=== PATIENT | male | born 1955 | race Hispanic/Latino ===

== ENCOUNTER 2018-02-22 22:40 | Observation (INO) | payer MEDICAID, OTHER ==
[2018-02-22 23:36] LABS: BASO # 0.06 K/mm3 (0.0-2.0); BASO % 0.6 % (0.0-3.0); EOS # 0.5 (0.0-0.7); GRAN # 4.45 (1.4-6.5); GRAN % 44.6 % (50.0-68.0); HEMOGLOBIN 14.2 g/dL (14.0-18.0); LYMPH # 3.7 (1.2-3.4); LYMPH % 37.2 % (22.0-35.0); MEAN CORPUSCULAR HEMOGLOBIN 30.5 pg (25.0-35.0); MEAN CORPUSCULAR HGB CONC 33.6 g/dl (31.0-37.0); MEAN PLATELET VOLUME 10.1 fl (7.0-11.0); MONO # 1.3 (0.1-0.6); MONO % 12.6 % (1.0-6.0); RBC 4.65 10^6/uL (3.5-6.1); RED CELL DISTRIBUTION WIDTH 13.8 % (11.5-14.5)
[2018-02-22 23:42] LABS: ALB/GLOB RATIO 1.2 (1.1-1.8); ALBUMIN 4.3 g/dL (3.0-4.8); ALT/SGPT 40 U/L (7-56); AST/SGOT 43 U/L (17-59); BLOOD UREA NITROGEN 13 mg/dL (7-21); CALCIUM 9.4 mg/dL (8.4-10.5); GFR NON-AFRICAN AMERICAN > 60
[2018-02-22 23:53] LABS: B-TYPE NATRIURETIC PEPTIDE 14.2 pg/mL (0-450); TROPONIN I < 0.01 ng/mL
[2018-02-23 00:04] LABS: CK-MB 2.8 ng/mL (0.0-3.6)
[2018-02-23 00:04] LABS: PH,URINE 6.5 (4.7-8.0); URINE BILIRUBIN NEGATIVE (NEGATIVE); URINE BLOOD NEGATIVE (NEGATIVE); URINE GLUCOSE (UA) NEGATIVE (NEGATIVE); URINE LEUKOCYTE ESTERASE NEGATIVE Leu/uL (NEGATIVE); URINE PROTEIN NEGATIVE mg/dL (<30 mg/dL); URINE UROBILINOGEN 0.2 E.U./dL (<1 E.U./dL)
[2018-02-23 00:22] LABS: URINE APPEARANCE CLEAR (CLEAR); URINE COLOR LIGHT YELLOW (YELLOW)
--- NOTE | 2018-02-23 01:32 | ED PDOC ---
Arrival/HPI <Alissa Kovacs - Last Filed: 02/23/18 02:37> - General Historian: Patient - History of Present Illness Narrative History of Present Illness (Text): Amador Cummins is a 62 year old male, with no past medical history because patient stated he does not go to the doctor, who presents to the Emergency department complaining of sudden onset of dizziness and palpitations. Patient states he was sitting in his chair when he suddenly started to feel dizzy, s weating, and felt his heart racing. Patient states he stood up and felt like he was going to pass out. Patient states he symptoms slowly resolved but he came to the Emergency department for further evaluation. Patient states he has been sick for the past month with cough, which has improved. Patient denies any nasal congestion, headache, trauma/injury, abdominal pain, nausea, vomiting, blurry vision, or any other complaints. Symptom Onset: Gradual Symptom Course: Unchanged Activities at Onset: Light Context: Home <Saleem Hawkins DO - Last Filed: 02/23/18 03:06> - General Chief Complaint: Dizziness/Lightheaded Time Seen by Provider: 02/22/18 23:01 Past Medical History - Cardiac Hx Cardiac Disorders: No - Gastrointestinal Other/Comment: appendectomy. hernia - Genitourinary/Gynecological Hx Genitourinary Disorders: No - Psychiatric Hx Substance Use: No - Surgical History Other/Comment: inguinal hernia - Anesthesia Hx Anesthesia: No <Alissa Kovacs - Last Filed: 02/23/18 02:37> - Provider Review Nursing Documentation Reviewed: Yes <Saleem Hawkins DO - Last Filed: 02/23/18 03:06> Family/Social History Smoking Status: Never Smoked Hx Alcohol Use: No Hx Substance Use: No <Alissa Kovacs - Last Filed: 02/23/18 02:37> - Physician Review Nursing Documentation Reviewed: Yes Family/Social History: Unknown Family HX <Saleem Hawkins DO - Last Filed: 02/23/18 03:06> Allergies/Home Meds <Alissa Kovacs - Last Filed: 02/23/18 02:37> <Saleem Hawkins DO - Last Filed: 02/23/18 03:06> Allergies/Adverse Reactions: Allergies Penicillins Adverse Reaction (Verified 02/22/18 22:56) URTICARIA Home Medications: Home Meds Medication Instructions Recorded Confirmed No Known Home Med 02/22/18 02/22/18 Review of Systems - Physician Review All systems were reviewed & negative as marked: Yes - Review of Systems Cardiovascular: Palpitations, Other (+near-syncope) Gastrointestinal: absent: Nausea, Vomiting Neurological: Dizziness Endocrine: Diaphoresis <Shruthi Saleem GRANT - Last Filed: 02/23/18 03:06> Physical Exam Vital Signs Temp Pulse Resp BP Pulse Ox 02/22/18 22:53 98.0 F 104 H 18 143/80 98 <Alissa Kovacs - Last Filed: 02/23/18 02:37> Vital Signs Reviewed: Yes Vital Signs Temp Pulse Resp BP Pulse Ox 02/23/18 01:34 76 18 137/81 98 02/22/18 22:53 98.0 F 104 H 18 143/80 98 Temperature: Afebrile Blood Pressure: Normal Pulse: Regular Respiratory Rate: Normal Appearance: Positive for: Well-Appearing, Non-Toxic, Comfortable Pain Distress: None Mental Status: Positive for: Alert and Oriented X 3 - Systems Exam Head: Present: Atraumatic, Normocephalic Pupils: Present: PERRL Extroacular Muscles: Present: EOMI Conjunctiva: Present: Normal Ears: Present: Normal, NORMAL TM, Normal Canal. No: Erythema, TM Bulging, Fluid, TM Perf Mouth: Present: Moist Mucous Membranes Pharnyx: Present: Normal. No: ERYTHEMA, EXUDATE, TONSILS ENLARGED, Peritonsilar Swelling, Uvular Deviation, Muffled/Hoarse Voice, Strider, Soft Palate/Uvular Edema Nose (External): Present: Atraumatic Nose (Internal): Present: Normal Inspection Neck: Present: Normal Range of Motion. No: Meningeal Signs, MIDLINE TENDERNESS, Paraspinal Tenderness Respiratory/Chest: Present: Clear to Auscultation, Good Air Exchange. No: Respiratory Distress, Accessory Muscle Use Cardiovascular: Present: Regular Rate and Rhythm, Normal S1, S2. No: Murmurs Abdomen: No: Tenderness, Distention, Peritoneal Signs Back: Present: Normal Inspection. No: CVA Tenderness, Midline Tenderness, Paraspinal Tenderness Upper Extremity: Present: Normal Inspection, Normal ROM, NORMAL PULSES. No: Cyanosis, Edema Lower Extremity: Present: Normal Inspection, NORMAL PULSES, Normal ROM. No: Edema Neurological: Present: GCS=15, Speech Normal, Motor Func Grossly Intact, Normal Sensory Function, Normal Cerebellar Funct, Other (Moving all extremities) Skin: Present: Warm, Dry, Normal Color. No: Rashes Psychiatric: Present: Alert, Oriented x 3, Normal Insight, Normal Concentration <Saleem Hawkins DO - Last Filed: 02/23/18 03:06> Medical Decision Making - Lab Interpretations Lab Results: 02/22/18 23:03 02/22/18 23:03 Lab Results 02/22/18 23:40: Urine Color Light yellow, Urine Appearance Clear, Urine pH 6.5, Ur Specific [place] <= 1.005, Urine Protein Negative, Urine Glucose (UA) Negative, Urine Ketones Negative, Urine Blood Negative, Urine Nitrate Negative, Urine Bilirubin Negative, Urine Urobilinogen 0.2, Ur Leukocyte Esterase Negative 02/22/18 23:03: WBC 10.0, RBC 4.65, Hgb 14.2, Hct 42.3, MCV 91.0, MCH 30.5, MCHC 33.6, RDW 13.8, Plt Count 297, MPV 10.1, Gran % 44.6 L, Lymph % (Auto) 37.2 H, Beadle % (Auto) 12.6 H, Eos % (Auto) 5.0, Baso % (Auto) 0.6, Gran # 4.45, Lymph # (Auto) 3.7 H, [place]le # (Auto) 1.3 H, Eos # (Auto) 0.5, Baso # (Auto) 0.06 02/22/18 23:03: Sodium 137, Potassium 3.7, Chloride 101, Carbon Dioxide 28, Anion Gap 12, BUN 13, Creatinine 1.0, Est GFR ( Amer) > 60, Est GFR (Non- Af Amer) > 60, Random Glucose 175 H, Calcium 9.4, Total Bilirubin 0.4, AST 43, ALT 40, Alkaline Phosphatase 73, Lactate Dehydrogenase 520, Total Creatine Kinase 307 H, CK-MB (CK-2) 2.8, CK-MB (CK-2) % Cancelled, Troponin I < 0.01, NT-Pro-B Natriuret Pep 14.2, Total Protein 7.8, Albumin 4.3, Globulin 3.5, Albumin/Globulin Ratio 1.2 - RAD Interpretation Radiology Orders: 02/22/18 23:11 CHEST PORTABLE [RAD] Stat 02/22/18 23:39 HEAD W/O CONTRAST [CT] Stat <Alissa Kovacs - Last Filed: 02/23/18 02:37> ED Course and Treatment: Impression: 62 year old male complaining of dizziness, near-syncope, and palpitations. Plan: -- CT Head w/o contrast -- EKG -- Chest X-ray -- CMC, CMP, BNP -- Urinalysis -- Aspirin -- Reassess and disposition Progress Notes: Radiology reviewed, Chest X-ray shows no acute processes. CT Head shows: No acute intracranial abnormality. Electronically signed on Feb 23, 2018 12:55:15 AM EST by: Saleem Egan M.D., YOLY Certified By ABR & CBCCT Fellowship Trained MRI and CT Specialist Case discussed with Dr. Wallis. Will admit pt to hospitalist service for near- syncope and hyperglycemia, observational status. - Lab Interpretations Lab Results: 02/22/18 23:03 02/22/18 23:03 Lab Results 02/22/18 23:40: Urine Color Light yellow, Urine Appearance Clear, Urine pH 6.5, Ur Specific [place] <= 1.005, Urine Protein Negative, Urine Glucose (UA) Negative, Urine Ketones Negative, Urine Blood Negative, Urine Nitrate Negative, Urine Bilirubin Negative, Urine Urobilinogen 0.2, Ur Leukocyte Esterase Negative 02/22/18 23:03: WBC 10.0, RBC 4.65, Hgb 14.2, Hct 42.3, MCV 91.0, MCH 30.5, MCHC 33.6, RDW 13.8, Plt Count 297, MPV 10.1, Gran % 44.6 L, Lymph % (Auto) 37.2 H, Beadle % (Auto) 12.6 H, Eos % (Auto) 5.0, Baso % (Auto) 0.6, Gran # 4.45, Lymph # (Auto) 3.7 H, [place]le # (Auto) 1.3 H, Eos # (Auto) 0.5, Baso # (Auto) 0.06 02/22/18 23:03: Sodium 137, Potassium 3.7, Chloride 101, Carbon Dioxide 28, Anion Gap 12, BUN 13, Creatinine 1.0, Est GFR ( Amer) > 60, Est GFR (Non- Af Amer) > 60, Random Glucose 175 H, Calcium 9.4, Total Bilirubin 0.4, AST 43, A LT 40, Alkaline Phosphatase 73, Lactate Dehydrogenase 520, Total Creatine Kinase 307 H, CK-MB (CK-2) 2.8, CK-MB (CK-2) % Cancelled, Troponin I < 0.01, NT-Pro-B Natriuret Pep 14.2, Total Protein 7.8, Albumin 4.3, Globulin 3.5, Albumin/Globulin Ratio 1.2 I have reviewed the lab results: Yes - RAD Interpretation Radiology Orders: 02/22/18 23:11 CHEST PORTABLE [RAD] Stat 02/22/18 23:39 HEAD W/O CONTRAST [CT] Stat Marble Supervisor: ED Physician, Radiologist - EKG Interpretation Interpreted by ED Physician: Yes Type: 12 lead EKG - Medication Orders Current Medication Orders: Sodium Chloride (Sodium Chloride 0.9%) 1,000 mls @ 100 mls/hr IV .Q10H GIOVANNA Last Admin: 02/23/18 02:28 Dose: 100 mls/hr eMAR Start Stop Document 02/23/18 02:28 CNR (Rec: 02/23/18 02:29 CNR [id number]) Intravenous Solution Start Date 02/23/18 Start Time 02:29 Insulin Human Lispro (Humalog Low) 0 units SC ACHS GIOVANNA; Protocol Discontinued Medications Aspirin (Aspirin) 325 mg PO STAT STA Stop: 02/23/18 02:01 Last Admin: 02/23/18 02:29 Dose: 325 mg <Saleem Hawkins DO - Last Filed: 02/23/18 03:06> - Scribe Statement The provider has reviewed the documentation as recorded by the Christiano Epps Provider Scribe Attestation: All medical record entries made by the Scribe were at my direction and personally dictated by me. I have reviewed the chart and agree that the record a ccurately reflects my personal performance of the history, physical exam, medical decision making, and the department course for this patient. I have also personally directed, reviewed, and agree with the discharge instructions and disposition. <Saleem Hawkins DO - Last Filed: 02/23/18 03:06> Disposition/Present on Arrival - Present on Arrival Any Indicators Present on Arrival: No History of DVT/PE: No History of Uncontrolled Diabetes: No Urinary Catheter: No History of Decub. Ulcer: No History Surgical Site Infection Following: None - Disposition Have Diagnosis and Disposition been Completed?: Yes Disposition Time: 01:20 Patient Plan: Observation <Alissa Kovacs - Last Filed: 02/23/18 02:37> <Saleem Hawkins DO - Last Filed: 02/23/18 03:06> - Disposition Diagnosis: Near syncope, Palpitations, Elevated blood sugar level Disposition: HOSPITALIZED Patient Problems: Current Active Problems Problem Status Onset Near syncope Acute Palpitations Acute Elevated blood sugar level Acute Condition: FAIR
[2018-02-23] MEDS: Sodium Chloride 0.9% 1,000 ML IV SCH ×3 (02:28→22:49)
--- NOTE | 2018-02-23 03:13 | ED PDOC ---
Arrival/HPI - General Historian: Patient - History of Present Illness Narrative History of Present Illness (Text): Amador Cummins is a 62 year old male, with no past medical history because patient stated he does not go to the doctor, who presents to the Emergency department complaining of sudden onset of dizziness and palpitations. Patient states he was sitting in his chair when he suddenly started to feel dizzy, sweating, and felt his heart racing. Patient states he stood up and felt like he was going to pass out. Patient states he symptoms slowly improved but he came to the Emergency department for further evaluation. Patient states he has been sick for the past month with cough, which has improved. Patient denies any nasal congestion, headache, trauma/injury, abdominal pain, nausea, vomiting, blurry vision, or any other complaints. Symptom Onset: Gradual Symptom Course: Unchanged Activities at Onset: Light Context: Home <Alissa Kovacs - Last Filed: 02/23/18 03:14> <Saleem Hawkins DO - Last Filed: 02/23/18 03:28> - General Chief Complaint: Dizziness/Lightheaded Time Seen by Provider: 02/22/18 23:01 Past Medical History - Provider Review Nursing Documentation Reviewed: Yes - Travel History Have you recently traveled outside [place] w/in the past 3 mons?: No - Infectious Disease Hx of Infectious Diseases: None - Cardiac Hx Cardiac Disorders: No - Gastrointestinal Other/Comment: appendectomy. hernia - Genitourinary/Gynecological Hx Genitourinary Disorders: No - Psychiatric Hx Substance Use: No - Surgical History Other/Comment: inguinal hernia - Anesthesia Hx Anesthesia: No <Alissa Kovacs - Last Filed: 02/23/18 03:14> Family/Social History - Physician Review Nursing Documentation Reviewed: Yes Family/Social History: Unknown Family HX Smoking Status: Never Smoked Hx Alcohol Use: No Hx Substance Use: No <Alissa Kovacs - Last Filed: 02/23/18 03:14> Allergies/Home Meds <Alissa Kovacs - Last Filed: 02/23/18 03:14> <Saleem Hawkins DO - Last Filed: 02/23/18 03:28> Allergies/Adverse Reactions: Allergies Penicillins Adverse Reaction (Verified 02/22/18 22:56) URTICARIA Home Medications: Home Meds Medication Instructions Recorded Confirmed No Known Home Med 02/22/18 02/22/18 Review of Systems - Review of Systems Constitutional: absent: Fatigue, Fevers ENT: absent: Sore Throat, Sinus Congestion Respiratory: Cough. absent: SOB Cardiovascular: Palpitations. absent: Chest Pain, Orthopnea Gastrointestinal: absent: Abdominal Pain, Constipation, Diarrhea, Nausea, Vomiting Genitourinary Male: absent: Dysuria, Frequency, Hematuria Musculoskeletal: absent: Arthralgias, Back Pain, Neck Pain Skin: absent: Rash, Pruritis Neurological: Dizziness, Other (near syncope). absent: Headache Endocrine: Diaphoresis Psychiatric: absent: Anxiety, Depression <Azoia,Alissa T - Last Filed: 02/23/18 03:14> Physical Exam Vital Signs Reviewed: Yes Vital Signs Temp Pulse Resp BP Pulse Ox 02/23/18 01:34 76 18 137/81 98 02/22/18 22:53 98.0 F 104 H 18 143/80 98 Temperature: Afebrile Blood Pressure: Normal Pulse: Tachycardic Respiratory Rate: Normal Appearance: Positive for: Well-Appearing, Non-Toxic, Comfortable Pain Distress: None Mental Status: Positive for: Alert and Oriented X 3 - Systems Exam Head: Present: Atraumatic Pupils: Present: PERRL Extroacular Muscles: Present: EOMI Conjunctiva: Present: Normal Ears: Present: Normal, NORMAL TM Mouth: Present: Moist Mucous Membranes, Normal Lips, Normal Tounge. No: Drooling, Trismus Pharnyx: Present: Normal. No: ERYTHEMA, EXUDATE, TONSILS ENLARGED, Peritonsilar Swelling, Muffled/Hoarse Voice Nose (External): Present: Atraumatic Nose (Internal): Present: Normal Inspection. No: Septal Deviation, Septal Hematoma Neck: Present: Normal Range of Motion, Trachea Midline Respiratory/Chest: Present: Clear to Auscultation, Good Air Exchange. No: Respiratory Distress, Accessory Muscle Use, Wheezes, Retracting, Rhonchi, Tachypneic Cardiovascular: Present: Regular Rate and Rhythm. No: Murmurs Abdomen: No: Tenderness, Rebound, Guarding Upper Extremity: Present: Normal Inspection, Normal ROM Lower Extremity: Present: Normal Inspection, Normal ROM Neurological: Present: GCS=15, Speech Normal Skin: Present: Warm, Dry, Normal Color. No: Rashes Psychiatric: Present: Alert, Oriented x 3 <Alissa Kovacs - Last Filed: 02/23/18 03:14> Vital Signs Temp Pulse Resp BP Pulse Ox 02/23/18 01:34 76 18 137/81 98 02/22/18 22:53 98.0 F 104 H 18 143/80 98 <Saleem Hawkins DO - Last Filed: 02/23/18 03:28> Medical Decision Making ED Course and Treatment: 62 year old male complaining of dizziness, near-syncope, and palpitations. Plan: -- CT Head w/o contrast -- EKG -- Chest X-ray -- CMC, CMP, BNP -- Urinalysis -- Reassess and disposition Progress Notes: FINDINGS: BRAIN No acute intraparenchymal hemorrhage. No mass lesion. No CT evidence for acute territorial infarct. No midline shift or extra-axial collections. VENTRICLES: No hydrocephalus. ORBITS: The orbits are unremarkable. SINUSES AND MASTOIDS: Bilateral maxillary sinusitis The mastoid air cells are clear. BONES: No fracture. SOFT TISSUES: Unremarkable. IMPRESSION: No acute intracranial abnormality. Electronically signed on Feb 23, 2018 12:55:15 AM EST by: Saleem Egan M.D., YOLY Certified By ABR & CBCCT Fellowship Trained MRI and CT Specialist cxr; no infiltrate or effusion cbc; wnl cmp; glucose; 175 ua; wnl results discussed with patient in depth; pt states he is feeling better. denies cp or sob. advised patient of elevated glucose. Case discussed with Dr. Wallis. Will admit observational status to hospitalist service for near-syncope and hyperglycemia impression; dizzinesss, near syncope, elevated blood glucose admit observational status. - Lab Interpretations Lab Results: 02/22/18 23:03 02/22/18 23:03 Lab Results 02/22/18 23:40: Urine Color Light yellow, Urine Appearance Clear, Urine pH 6.5, Ur Specific [place] <= 1.005, Urine Protein Negative, Urine Glucose (UA) Negative, Urine Ketones Negative, Urine Blood Negative, Urine Nitrate Negative, Urine Bilirubin Negative, Urine Urobilinogen 0.2, Ur Leukocyte Esterase Negative 02/22/18 23:03: WBC 10.0, RBC 4.65, Hgb 14.2, Hct 42.3, MCV 91.0, MCH 30.5, MCHC 33.6, RDW 13.8, Plt Count 297, MPV 10.1, Gran % 44.6 L, Lymph % (Auto) 37.2 H, [place] % (Auto) 12.6 H, Eos % (Auto) 5.0, Baso % (Auto) 0.6, Gran # 4.45, Lymph # (Auto) 3.7 H, Frontier # (Auto) 1.3 H, Eos # (Auto) 0.5, Baso # (Auto) 0.06 02/22/18 23:03: Sodium 137, Potassium 3.7, Chloride 101, Carbon Dioxide 28, Anion Gap 12, BUN 13, Creatinine 1.0, Est GFR ( Amer) > 60, Est GFR (Non- Af Amer) > 60, Random Glucose 175 H, Calcium 9.4, Total Bilirubin 0.4, AST 43, ALT 40, Alkaline Phosphatase 73, Lactate Dehydrogenase 520, Total Creatine Kinase 307 H, CK-MB (CK-2) 2.8, CK-MB (CK-2) % Cancelled, Troponin I < 0.01, NT- Pro-B Natriuret Pep 14.2, Total Protein 7.8, Albumin 4.3, Globulin 3.5, Albumin/Globulin Ratio 1.2 I have reviewed the lab results: Yes - RAD Interpretation Radiology Orders: 02/22/18 23:11 CHEST PORTABLE [RAD] Stat 02/22/18 23:39 HEAD W/O CONTRAST [CT] Stat Cloth Spreader: ED Physician, Radiologist - EKG Interpretation Interpreted by ED Physician: Yes Type: 12 lead EKG - Medication Orders Current Medication Orders: Sodium Chloride (Sodium Chloride 0.9%) 1,000 mls @ 100 mls/hr IV .Q10H GIOVANNA Last Admin: 02/23/18 02:28 Dose: 100 mls/hr eMAR Start Stop Document 02/23/18 02:28 CNR (Rec: 02/23/18 02:29 CNR [id number]) Intravenous Solution Start Date 02/23/18 Start Time 02:29 Insulin Human Lispro (Humalog Low) 0 units SC ACHS GIOVANNA; Protocol Discontinued Medications Aspirin (Aspirin) 325 mg PO STAT STA Stop: 02/23/18 02:01 Last Admin: 02/23/18 02:29 Dose: 325 mg <Alissa Kovacs T - Last Filed: 02/23/18 03:14> - Lab Interpretations Lab Results: 02/22/18 23:03 02/22/18 23:03 Lab Results 02/22/18 23:40: Urine Color Light yellow, Urine Appearance Clear, Urine pH 6.5, Ur Specific [place] <= 1.005, Urine Protein Negative, Urine Glucose (UA) Negative, Urine Ketones Negative, Urine Blood Negative, Urine Nitrate Negative, Urine Bilirubin Negative, Urine Urobilinogen 0.2, Ur Leukocyte Esterase Negative 02/22/18 23:03: WBC 10.0, RBC 4.65, Hgb 14.2, Hct 42.3, MCV 91.0, MCH 30.5, MCHC 33.6, RDW 13.8, Plt Count 297, MPV 10.1, Gran % 44.6 L, Lymph % (Auto) 37.2 H, Frontier % (Auto) 12.6 H, Eos % (Auto) 5.0, Baso % (Auto) 0.6, Gran # 4.45, Lymph # (Auto) 3.7 H, Frontier # (Auto) 1.3 H, Eos # (Auto) 0.5, Baso # (Auto) 0.06 02/22/18 23:03: Sodium 137, Potassium 3.7, Chloride 101, Carbon Dioxide 28, Anion Gap 12, BUN 13, Creatinine 1.0, Est GFR ( Amer) > 60, Est GFR (Non- Af Amer) > 60, Random Glucose 175 H, Calcium 9.4, Total Bilirubin 0.4, AST 43, ALT 40, Alkaline Phosphatase 73, Lactate Dehydrogenase 520, Total Creatine Kinase 307 H, CK-MB (CK-2) 2.8, CK-MB (CK-2) % Cancelled, Troponin I < 0.01, NT-Pro-B Natriuret Pep 14.2, Total Protein 7.8, Albumin 4.3, Globulin 3.5, Albumin/Globulin Ratio 1.2 - RAD Interpretation Radiology Orders: 02/22/18 23:11 CHEST PORTABLE [RAD] Stat 02/22/18 23:39 HEAD W/O CONTRAST [CT] Stat - EKG Interpretation EKG Interpretation (Text): NSR at [address]-segment elevations or depressions, no T-wave inversions, normal intervals. - Medication Orders Current Medication Orders: Sodium Chloride (Sodium Chloride 0.9%) 1,000 mls @ 100 mls/hr IV .Q10H GIOVANNA Last Admin: 02/23/18 02:28 Dose: 100 mls/hr eMAR Start Stop Document 02/23/18 02:28 CNR (Rec: 02/23/18 02:29 CNR [id number]) Intravenous Solution Start Date 02/23/18 Start Time 02:29 Insulin Human Lispro (Humalog Low) 0 units SC ACHS GIOVANNA; Protocol Discontinued Medications Aspirin (Aspirin) 325 mg PO STAT STA Stop: 02/23/18 02:01 Last Admin: 02/23/18 02:29 Dose: 325 mg <Saleem Hawkins DO - Last Filed: 02/23/18 03:28> - Scribe Statement The provider has reviewed the documentation as recorded by the Shiraibjavier Epps Provider Scribe Attestation: All medical record entries made by the Scribe were at my direction and personally dictated by me. I have reviewed the chart and agree that the record accurately reflects my personal performance of the history, physical exam, medical decision making, and the department course for this patient. I have also personally directed, reviewed, and agree with the discharge instructions and disposition. <Alissa Kovacs - Last Filed: 02/23/18 03:14> Disposition/Present on Arrival - Present on Arrival Any Indicators Present on Arrival: No History of DVT/PE: No History of Uncontrolled Diabetes: No Urinary Catheter: No History of Decub. Ulcer: No History Surgical Site Infection Following: None - Disposition Have Diagnosis and Disposition been Completed?: Yes Disposition Time: 01:30 Patient Plan: Observation <Alissa Kovacs - Last Filed: 02/23/18 03:14> <Saleem Hawkins DO - Last Filed: 02/23/18 03:28> - Disposition Diagnosis: Near syncope, Palpitations, Elevated blood sugar level Disposition: HOSPITALIZED Patient Problems: Current Active Problems Problem Status Onset Near syncope Acute Palpitations Acute Elevated blood sugar level Acute Condition: FAIR
--- NOTE | 2018-02-23 03:42 | CP.PCM.HP ---
<Kyle Herrera - Last Filed: 02/23/18 04:34> History of Present Illness - History of Present Illness History of Present Illness: Kyle Herrera, PGY-1 Medicine H&P Note for Dr. Wallis: CC: Near syncope Pt is a 62 yo M with no significant pmhx who presents to the ED for near syncope and palpitations. Pt states that at 10 PM yesterday he was sitting on his couch when he began to feel lightheaded. Pt states that he has had episodes like this before, but they would only last for a few seconds and they would be limited to when he would stand too quickly. Pt states that this time he was on the couch and just watching TV. He then stood up to go to his office and to drink some water. Pt states that when he stood up the lightheadedness did not get worse. Pt reports that when his lightheadedness felt better after he drank some water. Pt reports that after the water he went up to his office but continued to feel lightheaded and this feeling continued for about 30 mins per pt before he called EMS. Pt denies actually fainting during this episode. Pt states that also during this episode he felt palpitations. Pt also denies fevers, chills, headache, weakness, dizziness, SOB, chest pain, orthopnea, abd pain, n/v, c/d, dysuria or hematuria. Pt does admit to a cough that has been present for 3 weeks after he recovered from the flu, the cough is not productive, he continues to admit to dizziness but states that it is improved, and he admits to increase urinary frequency and increased thirst. Pmhx: Denies (states he has not seen a doctor in a very long time) Pshx: Hernia repair Meds: Denies All: PCN - palm peels Social: denies any tobacco use, social etoh use 2beers/mo, denies illicit drug use Fam: Non-contributory PMD: Denies Pharm: Denies Present on Admission - Present on Admission Any Indicators Present on Admission: No Review of Systems - Review of Systems Review of Systems: 12 point ROS reviewed and negative except noted above in HPI Past Patient History - Infectious Disease Hx of Infectious Diseases: None - Past Social History Smoking Status: Never Smoked - CARDIAC Hx Cardiac Disorders: No - GASTROINTESTINAL Other/Comment: appendectomy. hernia - GENITOURINARY/GYNECOLOGICAL Hx Genitourinary Disorders: No - PSYCHIATRIC Hx Substance Use: No - SURGICAL HISTORY Other/Comment: inguinal hernia - ANESTHESIA Hx Anesthesia: No Meds Allergies/Adverse Reactions: Allergies Allergy/AdvReac Type Severity Reaction Status Date / Time Penicillins AdvReac URTICARIA Verified 02/22/18 22:56 Physical Exam - Constitutional Appears: Well, Non-toxic, No Acute Distress - Head Exam Head Exam: ATRAUMATIC, NORMAL INSPECTION, NORMOCEPHALIC - Eye Exam Eye Exam: EOMI, Normal appearance, PERRL - ENT Exam ENT Exam: Mucous Membranes Dry - Respiratory Exam Respiratory Exam: Clear to Auscultation Bilateral, NORMAL BREATHING PATTERN. absent: Accessory Muscle Use, Chest Wall Tenderness, Decreased Breath Sounds, Rales, Rhonchi, Wheezes, Respiratory Distress, Stridor - Cardiovascular Exam Cardiovascular Exam: RRR, +S1, +S2. absent: Gallop, Rubs, Systolic Murmur - GI/Abdominal Exam GI & Abdominal Exam: Normal Bowel Sounds, Soft. absent: Firm, Rigid, Tenderness - Extremities Exam Extremities exam: Positive for: normal capillary refill, normal inspection, pedal pulses present. Negative for: pedal edema - Back Exam Back exam: NORMAL INSPECTION. absent: CVA tenderness (L), CVA tenderness (R) - Neurological Exam Neurological exam: Alert, Oriented x3 - Psychiatric Exam Psychiatric exam: Normal Affect, Normal Mood - Skin Skin Exam: Dry, Intact, Normal Color, Warm Results - Vital Signs Recent Vital Signs: Last Vital Signs Temp 98.0 F 02/22/18 22:53 Pulse 81 02/23/18 02:44 Resp 18 02/23/18 02:44 BP 136/78 02/23/18 02:44 Pulse Ox 97 02/23/18 02:44 - Labs Result Diagrams: 02/22/18 23:03 02/22/18 23:03 Labs: Laboratory Results - last 24 hr 02/22/18 02/22/18 02/22/18 23:03 23:03 23:40 WBC 10.0 RBC 4.65 Hgb 14.2 Hct 42.3 MCV 91.0 MCH 30.5 MCHC 33.6 RDW 13.8 Plt Count 297 MPV 10.1 Gran % 44.6 L Lymph % (Auto) 37.2 H [place] % (Auto) 12.6 H Eos % (Auto) 5.0 Baso % (Auto) 0.6 Gran # 4.45 Lymph # (Auto) 3.7 H [place] # (Auto) 1.3 H Eos # (Auto) 0.5 Baso # (Auto) 0.06 Sodium 137 Potassium 3.7 Chloride 101 Carbon Dioxide 28 Anion Gap 12 BUN 13 Creatinine 1.0 Est GFR ( Amer) > 60 Est GFR (Non-Af Amer) > 60 POC Glucose (mg/dL) Random Glucose 175 H Calcium 9.4 Total Bilirubin 0.4 AST 43 ALT 40 Alkaline Phosphatase 73 Lactate Dehydrogenase 520 Total Creatine Kinase 307 H CK-MB (CK-2) 2.8 CK-MB (CK-2) % Cancelled Troponin I < 0.01 NT-Pro-B Natriuret Pep 14.2 Total Protein 7.8 Albumin 4.3 Globulin 3.5 Albumin/Globulin Ratio 1.2 Urine Color Light yellow Urine Appearance Clear Urine pH 6.5 Ur Specific [place] <= 1.005 Urine Protein Negative Urine Glucose (UA) Negative Urine Ketones Negative Urine Blood Negative Urine Nitrate Negative Urine Bilirubin Negative Urine Urobilinogen 0.2 Ur Leukocyte Esterase Negative 02/23/18 03:01 WBC RBC Hgb Hct MCV MCH MCHC RDW Plt Count MPV Gran % Lymph % (Auto) [place] % (Auto) Eos % (Auto) Baso % (Auto) Gran # Lymph # (Auto) [place] # (Auto) Eos # (Auto) Baso # (Auto) Sodium Potassium Chloride Carbon Dioxide Anion Gap BUN Creatinine Est GFR ( Amer) Est GFR (Non-Af Amer) POC Glucose (mg/dL) 117 H Random Glucose Calcium Total Bilirubin AST ALT Alkaline Phosphatase Lactate Dehydrogenase Total Creatine Kinase CK-MB (CK-2) CK-MB (CK-2) % Troponin I NT-Pro-B Natriuret Pep Total Protein Albumin Globulin Albumin/Globulin Ratio Urine Color Urine Appearance Urine pH Ur Specific [place] Urine Protein Urine Glucose (UA) Urine Ketones Urine Blood Urine Nitrate Urine Bilirubin Urine Urobilinogen Ur Leukocyte Esterase Assessment & Plan - Assessment and Plan (Free Text) Assessment: Pt is a 62 yo M with no significant pmhx who presents to the ED for near syncope and palpitations. EKG was NSR at [address]-T Wave changes. CXR: No acute disease f/u official read. UA wnl, CBC shows no WBC elevation, trop is <.01, CMP shows no electrolyte abnormality. BP is 137/81. Plan: 1. Near syncope likely 2/2 orthostatic r/o other etiologies: - EKG: NSR @ [address]-T wave changes - Pt admits to improvement with fluids - f/u TSH - Lipid panel - IVF NS @ 100/hr - Cardio consult - [facility] - Neuro consult - [facility] 2. Hyperglycemia w/out gap and no known hx of DM: - Pt admits to polyuria and polydipsia - Glucose elevated to 175 - f/u A1c - Cont IVFs 3. PPX: DVT: SCDs <Kenn Wallis - Last Filed: 02/24/18 19:42> Results - Vital Signs Recent Vital Signs: Last Vital Signs Temp 98.1 F 02/24/18 08:43 Pulse 78 02/24/18 08:43 Resp 20 02/24/18 08:43 BP 101/65 02/24/18 08:43 Pulse Ox 95 02/24/18 08:43 - Labs Result Diagrams: 02/24/18 05:15 02/24/18 05:15 Labs: Laboratory Results - last 24 hr 02/23/18 02/23/18 02/23/18 07:38 11:45 16:49 WBC RBC Hgb Hct MCV MCH MCHC RDW Plt Count MPV PT INR APTT D-Dimer, Quantitative Sodium Potassium Chloride Carbon Dioxide Anion Gap BUN Creatinine Est GFR ( Amer) Est GFR (Non-Af Amer) POC Glucose (mg/dL) 106 115 H 105 Random Glucose Calcium 02/23/18 02/24/18 02/24/18 21:03 05:15 05:15 WBC 9.1 RBC 4.44 Hgb 13.6 L Hct 40.8 L MCV 91.9 MCH 30.6 MCHC 33.3 RDW 14.0 Plt Count 268 MPV 10.0 PT INR APTT D-Dimer, Quantitative Sodium 139 Potassium 4.4 Chloride 106 Carbon Dioxide 28 Anion Gap 10 BUN 13 Creatinine 1.1 Est GFR ( Amer) > 60 Est GFR (Non-Af Amer) > 60 POC Glucose (mg/dL) 132 H Random Glucose 128 H Calcium 9.0 02/24/18 02/24/18 05:15 07:22 WBC RBC Hgb Hct MCV MCH MCHC RDW Plt Count MPV PT 12.5 INR 1.09 APTT 26.5 D-Dimer, Quantitative < 200 Sodium Potassium Chloride Carbon Dioxide Anion Gap BUN Creatinine Est GFR ( Amer) Est GFR (Non-Af Amer) POC Glucose (mg/dL) 111 H Random Glucose Calcium Attending/Attestation - Attestation I have personally seen and examined this patient.: Yes I have fully participated in the care of the patient.: Yes I have reviewed all pertinent clinical information: Yes Notes (Text): 02/24/18 19:40 Patient was seen when he was in the ER. Medical record was reviewed. Agree with history, physical examination, assessment and plan.
[2018-02-23 06:48] LABS: HEMOGLOBIN 13.8 g/dL (14.0-18.0); MEAN CELL VOLUME 90.6 fl (80.0-105.0); MEAN CORPUSCULAR HEMOGLOBIN 30.1 pg (25.0-35.0); MEAN CORPUSCULAR HGB CONC 33.2 g/dl (31.0-37.0); RBC 4.59 10^6/uL (3.5-6.1); RED CELL DISTRIBUTION WIDTH 13.9 % (11.5-14.5); WHITE BLOOD COUNT 8.3 10^3/uL (4.5-11.0)
[2018-02-23 06:58] LABS: BLOOD UREA NITROGEN 12 mg/dL (7-21); CALCIUM 9.1 mg/dL (8.4-10.5); GFR NON-AFRICAN AMERICAN > 60; HDL CHOLESTEROL 31 mg/dL (29-60)
[2018-02-23 07:08] LABS: TROPONIN I < 0.01 ng/mL
[2018-02-23 07:09] LABS: LDL CHOLESTEROL 169 mg/dL (0-129)
[2018-02-23 07:15] VITALS: RESP 20
--- NOTE | 2018-02-23 08:03 | CARD ---
APPROVED REPORT Date of service: 02/22/2018 EKG Measurement Heart [id number] <Conclusion> Normal sinus rhythm Normal ECG
[2018-02-23 08:05] VITALS: BMI 32.3
[2018-02-23] MEDS: Insulin Lispro (humaLOG) LOW Coverage SC SCH ×4 (08:57→21:38)
--- NOTE | 2018-02-23 10:44 | CT ---
Date of service: 02/22/2018 PROCEDURE: CT HEAD WITHOUT CONTRAST. HISTORY: dizziness, near syncope COMPARISON: None available. TECHNIQUE: Axial computed tomography images were obtained through the head/brain without intravenous contrast. Radiation dose: Total exam DLP = 1022.49 mGy-cm. This CT exam was performed using one or more of the following dose reduction techniques: Automated exposure control, adjustment of the mA and/or kV according to patient size, and/or use of iterative reconstruction technique. FINDINGS: HEMORRHAGE: No intracranial hemorrhage. BRAIN: No mass effect or edema. Scattered periventricular and subcortical white matter hypodensities, which are nonspecific, but often seen with chronic microvascular ischemic disease. Please note that MRI with diffusion imaging is more sensitive in the detection of acute ischemic event. VENTRICLES: No hydrocephalus. CALVARIUM: Unremarkable. PARANASAL SINUSES: Mucosal thickening of the left maxillary sinus and bilateral sphenoid sinuses. Minimal mucosal thickening of the ethmoid air cells. MASTOID AIR CELLS: Fluid within bilateral mastoid air cells. OTHER FINDINGS: None. IMPRESSION: Nonspecific white matter changes. Mucosal thickening of the left maxillary sinus and bilateral sphenoid sinuses. Minimal mucosal thickening of the ethmoid air cells. Correlate for sinusitis. Fluid within bilateral mastoid air cells. Correlate clinically for mastoiditis. Preliminary impression was provided by [facility]. Study marked for PA review.
--- NOTE | 2018-02-23 12:09 | RAD ---
HISTORY: dizziness/palpitations COMPARISON: No prior. TECHNIQUE: Chest, one view. FINDINGS: Examination limited by habitus. LUNGS: No focal consolidation. Please note that chest x-ray has limited sensitivity for the detection of pulmonary masses. PLEURA: No significant pleural effusion identified. No definite pneumothorax . CARDIOVASCULAR: Heart size appears within normal limits. No significant atherosclerotic calcification present. OSSEOUS STRUCTURES: No acute osseous abnormality identified. VISUALIZED UPPER ABDOMEN: Unremarkable. OTHER FINDINGS: None. IMPRESSION: No focal consolidation.
--- NOTE | 2018-02-23 13:11 | CP.PCM.CON ---
History of Present Illness - History of Present Illness History of Present Illness: Neurology Consultation Note: Mr. Cummins is a 62-year-old man, referred to me by Dr. Robledo, with no past medical history, who presented to the ED for evaluation of light-headedness and palpitations. He did not lose consciousness, and describes it as feeling as though he will pass out, without the sensation of spinning. He denied ringing in the ears, nausea, vomiting, gait instability or vision changes. Non-contrast CT scan of the head showed left maxillary sinus mucousal thickening, but no abnormal intracranial findings. Labs showed hyperlipidemia, hyperglycemia and elevated HbA1c. Review of Systems - Constitutional Constitutional: As Per HPI - EENT Eyes: absent: As Per HPI, Blind Spots, Blurred Vision, Change in Vision, Decreased Night Vision, Diplopia, Discharge, Dry Eye, Exophthalmos, Floaters, Irritation, Itchy Eyes, Loss of Peripheral Vision, Pain, Photophobia, Requires Corrective Lenses, Sees Flashes, Spots in Vision, Tunnel Vision, Other Visual Disturbances, Loss of Vision, Other Ears: absent: As Per HPI, Decreased Hearing, Ear Discharge, Ear Pain, Tinnitus, Abnormal Hearing, Disequilibrium, Dizziness, Other Nose/Mouth/Throat: absent: As Per HPI, Epistaxis, Nasal Congestion, Nasal Discharge, Nasal Obstruction, Nasal Trauma, Nose Pain, Post Nasal Drip, Sinus Pain, Sinus Pressure, Bleeding Gums, Change in Voice, Dental Pain, Dry Mouth, Dysphagia, Halitosis, Hoarsness, Lip Swelling, Mouth Lesions, Mouth Pain, Odynophagia, Sore Throat, Throat Swelling, Tongue Swelling, Facial Pain, Neck Pain, Neck Mass, Other - Cardiovascular Cardiovascular: As Per HPI - Respiratory Respiratory: absent: As Per HPI, Cough, Dyspnea, Hemoptysis, Dyspnea on Exertion, Wheezing, Snoring, Stridor, Pain on Inspiration, Chest Congestion, Excessive Mucous Production, Change in Mucous Color, Pain with Coughing, Other - Gastrointestinal Gastrointestinal: absent: As Per HPI, Abdominal Pain, Belching, Bloating, Change in Bowel Habits, Change in Stool Character, Coffee Ground Emesis, Constipation, Cramping, Diarrhea, Dyspepsia, Dysphagia, Early Satiety, Excessive Flatus, Fecal Incontinence, Heartburn, Hematemesis, Hematochezia, Loose Stools, Melena, Nausea, Odynophagia, Temesmus, Vomiting, Other - Musculoskeletal Musculoskeletal: absent: As Per HPI, Abnormal Gait, Arthralgias, Atrophy, Back Pain, Deformity, Joint Swelling, Limited Range of Motion, Loss of Height, Muscle Cramps, Muscle Weakness, Myalgias, Neck Pain, Numbness, Radiating Pain into Limb, Stiffness, Tingling, Other - Integumentary Integumentary: absent: As Per HPI, Acne, Alopecia, Bleeding Lesions, Change in Hair, Change in Nails, Change in Pigmentation, Changing Lesions, Dry Skin, Erythema, Furuncle, Hirsutism, Lesions, New Lesions, Non-Healing Lesions, Photosensitivity, Pruritus, Rash, Skin Pain, Skin Ulcer, Sores, Striae, Swelling, Unusual Bruising, Wounds, Jaundice, Other - Neurological Neurological: As Per HPI - Psychiatric Psychiatric: absent: As Per HPI, Abnormal Sleep Pattern, Anhedonia, Anxiety, Auditory Hallucinations, Behavioral Changes, Change in Appetite, Change in Libido, Confusion, Depression, Difficulty Concentrating, Hallucinations, Homicidal Ideation, Hopelessness, Irritability, Memory Loss, Mood Swings, Panic Attacks, Paranoia, Suicidal Ideation, Visual Hallucinations, Tactile Hallucin ations, Other - Endocrine Endocrine: absent: As Per HPI, Change in Body Appearance, Change in Libido, Cold Intolorance, Deepening of Voice, Excessive Sweating, Fatigue, Flushing, Heat Intolorance, Increase in Ring/Shoe/Hat Size, Palpitations, Polydipsia, Polyph agia, Polyuria, Other - Hematologic/Lymphatic Hematologic: absent: As Per HPI, Easy Bleeding, Easy Bruising, Lymphadenopathy, Other Past Patient History - Infectious Disease Hx of Infectious Diseases: None - Past Social History Smoking Status: Never Smoked - CARDIAC Hx Cardiac Disorders: No - PULMONARY Hx Respiratory Disorders: No - NEUROLOGICAL Hx Neurological Disorder: No - HEENT Hx HEENT Problems: No - RENAL Hx Chronic Kidney Disease: No - ENDOCRINE/METABOLIC Hx Endocrine Disorders: No - HEMATOLOGICAL/ONCOLOGICAL Hx Blood Disorders: No - INTEGUMENTARY Hx Dermatological Problems: No - MUSCULOSKELETAL/RHEUMATOLOGICAL Hx Musculoskeletal Disorders: No Hx Falls: No - GASTROINTESTINAL Hx Gastrointestinal Disorders: No - GENITOURINARY/GYNECOLOGICAL Hx Genitourinary Disorders: No - PSYCHIATRIC Hx Psychophysiologic Disorder: No Hx Substance Use: No - SURGICAL HISTORY Hx Surgeries: Yes Hx Appendectomy: Yes Other/Comment: inguinal hernia - ANESTHESIA Hx Anesthesia: No Meds Allergies/Adverse Reactions: Allergies Allergy/AdvReac Type Severity Reaction Status Date / Time Penicillins AdvReac URTICARIA Verified 02/22/18 22:56 - Medications Medications: Current Medications Albuterol/Ipratropium (Duoneb 3 Mg/0.5 Mg (3 Ml) Ud) 3 ml IH [id number] GIOVANNA Atorvastatin Calcium (Lipitor) 20 mg PO DIN GIOVANNA Sodium Chloride (Sodium Chloride 0.9%) 1,000 mls @ 100 mls/hr IV .Q10H GIOVANNA Last Admin: 02/23/18 02:28 Dose: 100 mls/hr Insulin Human Lispro (Humalog Low) 0 units SC ACHS GIOVANNA; Protocol Last Admin: 02/23/18 08:57 Dose: Not Given Physical Exam - Constitutional Appears: Well - Head Exam Head Exam: ATRAUMATIC, NORMAL INSPECTION, NORMOCEPHALIC - Eye Exam Eye Exam: EOMI, Normal appearance, PERRL Pupil Exam: NORMAL ACCOMODATION, PERRL - ENT Exam ENT Exam: Mucous Membranes Moist, Normal Exam - Neck Exam Neck exam: Positive for: Normal Inspection - Respiratory Exam Respiratory Exam: Clear to Auscultation Bilateral, NORMAL BREATHING PATTERN - Cardiovascular Exam Cardiovascular Exam: REGULAR RHYTHM - GI/Abdominal Exam GI & Abdominal Exam: Normal Bowel Sounds, Soft. absent: Tenderness - Rectal Exam Rectal Exam: Deferred - Extremities Exam Extremities exam: Positive for: normal inspection - Back Exam Back exam: NORMAL INSPECTION - Neurological Exam Neurological exam: Alert, CN II-XII Intact, Normal Gait, Oriented x3, Reflexes Normal - Psychiatric Exam Psychiatric exam: Normal Affect, Normal Mood - Skin Skin Exam: Dry, Intact, Normal Color, Warm Results - Vital Signs Recent Vital Signs: Last Vital Signs Temp 97.6 F 02/23/18 06:00 Pulse 79 02/23/18 06:00 Resp 20 02/23/18 06:00 BP 114/67 02/23/18 06:00 Pulse Ox 95 02/23/18 06:00 - Labs Result Diagrams: 02/23/18 06:00 02/23/18 06:00 Labs: Laboratory Results - last 24 hr 02/22/18 02/22/18 02/22/18 23:03 23:03 23:40 WBC 10.0 RBC 4.65 Hgb 14.2 Hct 42.3 MCV 91.0 MCH 30.5 MCHC 33.6 RDW 13.8 Plt Count 297 MPV 10.1 Gran % 44.6 L Lymph % (Auto) 37.2 H [place] % (Auto) 12.6 H Eos % (Auto) 5.0 Baso % (Auto) 0.6 Gran # 4.45 Lymph # (Auto) 3.7 H [place] # (Auto) 1.3 H Eos # (Auto) 0.5 Baso # (Auto) 0.06 Sodium 137 Potassium 3.7 Chloride 101 Carbon Dioxide 28 Anion Gap 12 BUN 13 Creatinine 1.0 Est GFR ( Amer) > 60 Est GFR (Non-Af Amer) > 60 POC Glucose (mg/dL) Random Glucose 175 H Hemoglobin A1c Calcium 9.4 Total Bilirubin 0.4 AST 43 ALT 40 Alkaline Phosphatase 73 Lactate Dehydrogenase 520 Total Creatine Kinase 307 H CK-MB (CK-2) 2.8 CK-MB (CK-2) % Cancelled Troponin I < 0.01 NT-Pro-B Natriuret Pep 14.2 Total Protein 7.8 Albumin 4.3 Globulin 3.5 Albumin/Globulin Ratio 1.2 Triglycerides Cholesterol LDL Cholesterol Direct HDL Cholesterol TSH 3rd Generation Urine Color Light yellow Urine Appearance Clear Urine pH 6.5 Ur Specific [place] <= 1.005 Urine Protein Negative Urine Glucose (UA) Negative Urine Ketones Negative Urine Blood Negative Urine Nitrate Negative Urine Bilirubin Negative Urine Urobilinogen 0.2 Ur Leukocyte Esterase Negative 02/23/18 02/23/18 02/23/18 03:01 06:00 06:00 WBC 8.3 RBC 4.59 Hgb 13.8 L Hct 41.6 L MCV 90.6 MCH 30.1 MCHC 33.2 RDW 13.9 Plt Count 288 MPV 10.0 Gran % Lymph % (Auto) [place] % (Auto) Eos % (Auto) Baso % (Auto) Gran # Lymph # (Auto) [place] # (Auto) Eos # (Auto) Baso # (Auto) Sodium Potassium Chloride Carbon Dioxide Anion Gap BUN Creatinine Est GFR ( Amer) Est GFR (Non-Af Amer) POC Glucose (mg/dL) 117 H Random Glucose Hemoglobin A1c 7.1 H Calcium Total Bilirubin AST ALT Alkaline Phosphatase Lactate Dehydrogenase Total Creatine Kinase CK-MB (CK-2) CK-MB (CK-2) % Troponin I NT-Pro-B Natriuret Pep Total Protein Albumin Globulin Albumin/Globulin Ratio Triglycerides Cholesterol LDL Cholesterol Direct HDL Cholesterol TSH 3rd Generation Urine Color Urine Appearance Urine pH Ur Specific [place] Urine Protein Urine Glucose (UA) Urine Ketones Urine Blood Urine Nitrate Urine Bilirubin Urine Urobilinogen Ur Leukocyte Esterase 02/23/18 02/23/18 02/23/18 06:00 06:00 12:05 WBC RBC Hgb Hct MCV MCH MCHC RDW Plt Count MPV Gran % Lymph % (Auto) [place] % (Auto) Eos % (Auto) Baso % (Auto) Gran # Lymph # (Auto) [place] # (Auto) Eos # (Auto) Baso # (Auto) Sodium 139 Potassium 4.0 Chloride 104 Carbon Dioxide 28 Anion Gap 11 BUN 12 Creatinine 1.0 Est GFR ( Amer) > 60 Est GFR (Non-Af Amer) > 60 POC Glucose (mg/dL) Random Glucose 125 H Hemoglobin A1c Calcium 9.1 Total Bilirubin AST ALT Alkaline Phosphatase Lactate Dehydrogenase Total Creatine Kinase CK-MB (CK-2) CK-MB (CK-2) % Troponin I < 0.01 < 0.01 NT-Pro-B Natriuret Pep Total Protein Albumin Globulin Albumin/Globulin Ratio Triglycerides 101 Cholesterol 191 LDL Cholesterol Direct 169 H HDL Cholesterol 31 TSH 3rd Generation 2.79 Urine Color Urine Appearance Urine pH Ur Specific [place] Urine Protein Urine Glucose (UA) Urine Ketones Urine Blood Urine Nitrate Urine Bilirubin Urine Urobilinogen Ur Leukocyte Esterase Assessment & Plan (1) Near syncope Assessment and Plan: This is likely due to metabolic causes, or cardiac causes considering he had episodes of palpitations along with the light-headedness. However, since he did not know that he is diabetic and hyperlipidemic, the patient should be worked up for possible underlying neurological causes as well. Vertebro-basilar insufficiency can be evaluated for with a CTA of the head/neck. Otherwise, continue telemetry and assistance from cardiology would be appreciated. Thank you for this consultation. Status: Acute
[2018-02-23 15:42] LABS: BARBITURATES, UR NEGATIVE (NEGATIVE); BENZODIAZEPINES, UR NEGATIVE (NEGATIVE); OPIATES, UR NEGATIVE (NEGATIVE); PHENCYCLIDINE, UR NEGATIVE (NEGATIVE)
[2018-02-23] MEDS: Albuterol-Ipratrop 3 mg / 0.5 (3 ml) UD IH SCH ×2 (16:04→20:55)
--- NOTE | 2018-02-23 22:15 | CON ---
DATE OF CONSULTATION: 02/23/2018 REASON FOR CONSULTATION: Dizziness. HISTORY OF PRESENT ILLNESS: The patient is a 62-year-old male who has no significant past medical history. He is a nonsmoker and nondrinker. He drives a tow-truck. He presented because of palpitations and lightheadedness. The patient denies any chest pain and is unaware of any cardiac history or history of stroke in the past. The patient does not recall experiencing the symptoms after his presentation to the telemetry unit. SOCIAL HISTORY: Nonsmoker, nondrinker. He drives a tow-truck. MEDICATIONS: The patient was on no medication at home. He is currently on albuterol inhaler, Lipitor 20 mg once a day, and normal saline 100 mL an hour. REVIEW OF SYSTEMS: No recent nausea or vomiting. No fever or chills. PHYSICAL EXAMINATION: GENERAL: The patient is a middle-aged male who does not appear to be in any distress at this time. VITAL SIGNS: Blood pressure 114/67, heart rate 71, temperature 97.6, respirations 20. HEENT: Normocephalic. NECK: No JVD. CHEST: Clear. HEART: S1 and S2, regular. ABDOMEN: Soft. EXTREMITIES: No edema. LABORATORY DATA: Hemoglobin and hematocrit 13.8 and 41.6. White count and platelet count are within normal limits. SMA-7 is within normal limits except for glucose of 125. Three sets of troponins are negative. LDL cholesterol is 169. The rest of lipid profile is within normal limits. TSH level is within normal limits. Urinalysis was unremarkable. Two EKGs revealed normal sinus rhythm. Head CT scan without contrast, nonspecific white matter changes. Chest x-ray was unremarkable. ASSESSMENT: 1. Palpitations and recurrent dizziness. 2. Borderline anemia. 3. Diabetes mellitus. The patient is hyperglycemic with hemoglobin A1c of 7.1. 4. Mild hyperlipidemia. RECOMMENDATIONS: Continue Lipitor 20 mg once a day. Continue normal saline infusion 100 mL an hour. Continue telemetry monitoring. Start aspirin 81 mg once a day. Obtain an echocardiogram, PT/PTT, D-dimer, and urine for drug screen. Abdiel Abreu MD [facility] # [id number]
[2018-02-24] MEDS: Albuterol-Ipratrop 3 mg / 0.5 (3 ml) UD IH SCH ×4 (00:40→15:46)
[2018-02-24 06:22] LABS: D DIMER < 200 ng/mlDDU (0-243); INR 1.09; PARTIAL THROMBOPLASTIN TIME 26.5 Seconds (25.1-36.5); PROTHROMBIN TIME 12.5 SECONDS (9.4-12.5)
[2018-02-24 06:37] LABS: BLOOD UREA NITROGEN 13 mg/dL (7-21); GFR NON-AFRICAN AMERICAN > 60
[2018-02-24 06:42] LABS: HEMOGLOBIN 13.6 g/dL (14.0-18.0); MEAN CELL VOLUME 91.9 fl (80.0-105.0); MEAN CORPUSCULAR HEMOGLOBIN 30.6 pg (25.0-35.0); MEAN CORPUSCULAR HGB CONC 33.3 g/dl (31.0-37.0); RBC 4.44 10^6/uL (3.5-6.1); WHITE BLOOD COUNT 9.1 10^3/uL (4.5-11.0)
[2018-02-24] MEDS: Insulin Lispro (humaLOG) LOW Coverage SC SCH ×2 (07:56→12:25)
--- NOTE | 2018-02-24 08:09 | CARD ---
APPROVED REPORT Date of service: 02/23/2018 EKG Measurement Heart [id number] <Conclusion> Normal sinus rhythm Normal ECG No change
[2018-02-24 08:45] VITALS: BP 101/65; PULSE 78; TEMP 98.1; O2SAT 95
[2018-02-24] MEDS: Sodium Chloride 0.9% 1,000 ML IV SCH (08:46)
--- NOTE | 2018-02-24 11:26 | CARD ---
APPROVED REPORT Date of service: 02/24/2018 EXAM: Two-dimensional and M-mode echocardiogram with Doppler and color Doppler. INDICATION PRE-SYNCOPE 2D DIMENSIONS Left Atrium (2D)4.1 (1.6-4.0cm)IVSd1.1 (0.7-1.1cm) LVDd3.8 (3.9-5.9cm)PWd1.3 (0.7-1.1cm) LVDs2.5 (2.5-4.0cm)FS (%) 33.5 % LVEF (%)63.1 (>50%) M-Mode DIMENSIONS Aortic Root2.50 (2.2-3.7cm)Aortic Cusp Exc.1.90 (1.5-2.0cm) Aortic Valve AoV Peak Zohlhlxk962.0cm/Crissy Peak GR.9mmHg Mitral Valve E/A ratio0.0 TDI E/Lateral E'0.0E/Medial E'0.0 Tricuspid Valve TR Peak [id number]/sRAP [id number] Peak Gr.6mmHg [id number] LEFT VENTRICLE The left ventricle is normal size. There is normal left ventricular wall thickness. The left ventricular function is normal. The left ventricular ejection fraction is within the normal range. There is normal LV segmental wall motion. Transmitral Doppler flow pattern is Grade I-abnormal relaxation pattern. RIGHT VENTRICLE The right ventricle is normal size. There is normal right ventricular wall thickness. The right ventricular systolic function is normal. ATRIA The left atrium is borderline dilated. The right atrium size is normal. AORTIC VALVE The aortic valve is not well visualized. No aortic regurgitation is present. There is no aortic valvular stenosis. MITRAL VALVE The mitral valve is normal in structure. There is no mitral valve regurgitation noted. There is no mitral valve stenosis. TRICUSPID VALVE The tricuspid valve is normal in structure. There is trace tricuspid regurgitation. PULMONIC VALVE The pulmonary valve is normal in structure. There is trace pulmonic valvular regurgitation. GREAT VESSELS The aortic root is normal in size. The IVC is normal in size and collapses >50% with inspiration. PERICARDIAL EFFUSION There is no pericardial effusion. <Conclusion> The left ventricle is normal size. There is normal left ventricular wall thickness. The left ventricular function is normal. The left ventricular ejection fraction is within the normal range. There is normal LV segmental wall motion. Transmitral Doppler flow pattern is Grade I-abnormal relaxation pattern.
--- NOTE | 2018-02-24 13:29 | PN ---
DATE: 02/24/2018 REASON FOR CONSULTATION AND FOLLOWUP: Cardiac evaluation, admitted with dizziness. SUBJECTIVE: The patient denies any chest pain, shortness of breath, or any palpitation. There were two episodes of dizziness. PHYSICAL EXAMINATION VITAL SIGNS: Temperature afebrile, heart rate 78, blood pressure 101/65. HEENT: PERRLA. Extraocular muscles intact. NECK: Supple. No carotid bruit or thyromegaly. CHEST: Clear to auscultation. HEART: S1, S2, regular. ABDOMEN: Soft. EXTREMITIES: Clubbing and cyanosis negative. LABORATORY DATA: Blood workup as follows; WBC 9, hemoglobin 13.6, hematocrit 40.8, platelet count 268,000. Chemistry shows sodium 139, potassium 4.4, chloride 106, carbon dioxide 28, anion gap of 10, BUN 13, creatinine 1.1. Troponin remains 0.01, negative. No evidence of acute ID. LDL 169. TSH 2.79. DIAGNOSTIC DATA: The patient underwent echocardiography this morning. Echocardiography revealed normal LV size and normal LV function. No segmental wall motion abnormality is noted. No mitral valve regurgitation. Trace tricuspid regurgitation. RV systolic pressure of . Essentially, normal echo. IMPRESSION AND PLAN: In general, this is a 62-year-old male with past medical history of , hyperlipidemia, borderline anemia, admitted with dizziness, diabetes. Essentially normal echo. We will schedule a stress test as outpatient for risk stratification. Face sheet was given to Cardiology to schedule a stress test as outpatient. No evidence of acute myocardial infarction. We will suggest to continue aspirin, continue atorvastatin. We will follow up. When stable, can be discharged. We will discontinue telemetry. Bradnon Jimenez MD
--- NOTE | 2018-02-24 13:58 | CP.PCM.DIS ---
<Lyn Wang - Last Filed: 02/24/18 14:16> Provider - Provider Date of Admission: 02/23/18 01:57 Attending physician: Wai Robledo MD Time Spent in preparation of Discharge (in minutes): 45 Hospital Course - Lab Results Lab Results: Most Recent Lab Values WBC 9.1 10^3/uL (4.5-11.0) 02/24/18 05:15 RBC 4.44 10^6/uL (3.5-6.1) 02/24/18 05:15 Hgb 13.6 g/dL (14.0-18.0) L 02/24/18 05:15 Hct 40.8 % (42.0-52.0) L 02/24/18 05:15 MCV 91.9 fl (80.0-105.0) 02/24/18 05:15 MCH 30.6 pg (25.0-35.0) 02/24/18 05:15 MCHC 33.3 g/dl (31.0-37.0) 02/24/18 05:15 RDW 14.0 % (11.5-14.5) 02/24/18 05:15 Plt Count 268 10^3/uL (120.0-450.0) 02/24/18 05:15 MPV 10.0 fl (7.0-11.0) 02/24/18 05:15 Gran % 44.6 % (50.0-68.0) L 02/22/18 23:03 Lymph % (Auto) 37.2 % (22.0-35.0) H 02/22/18 23:03 [place] % (Auto) 12.6 % (1.0-6.0) H 02/22/18 23:03 Eos % (Auto) 5.0 % (1.5-5.0) 02/22/18 23:03 Baso % (Auto) 0.6 % (0.0-3.0) 02/22/18 23:03 Gran # 4.45 (1.4-6.5) 02/22/18 23:03 Lymph # (Auto) 3.7 (1.2-3.4) H 02/22/18 23:03 [place] # (Auto) 1.3 (0.1-0.6) H 02/22/18 23:03 Eos # (Auto) 0.5 (0.0-0.7) 02/22/18 23:03 Baso # (Auto) 0.06 K/mm3 (0.0-2.0) 02/22/18 23:03 PT 12.5 SECONDS (9.4-12.5) 02/24/18 05:15 INR 1.09 02/24/18 05:15 APTT 26.5 Seconds (25.1-36.5) 02/24/18 05:15 D-Dimer, Quantitative < 200 ng/mlDDU (0-243) 02/24/18 05:15 Sodium 139 mmol/L (132-148) 02/24/18 05:15 Potassium 4.4 mmol/L (3.6-5.0) 02/24/18 05:15 Chloride 106 mmol/L (98-107) 02/24/18 05:15 Carbon Dioxide 28 mmol/L (21-33) 02/24/18 05:15 Anion Gap 10 (10-20) 02/24/18 05:15 BUN 13 mg/dL (7-21) 02/24/18 05:15 Creatinine 1.1 mg/dl (0.8-1.5) 02/24/18 05:15 Est GFR ( Amer) > 60 02/24/18 05:15 Est GFR (Non-Af Amer) > 60 02/24/18 05:15 POC Glucose (mg/dL) 111 mg/dL (65-110) H 02/24/18 07:22 Random Glucose 128 mg/dL (70-110) H 02/24/18 05:15 Hemoglobin A1c 7.1 % (4.2-6.5) H 02/23/18 06:00 Calcium 9.0 mg/dL (8.4-10.5) 02/24/18 05:15 Total Bilirubin 0.4 mg/dL (0.2-1.3) 02/22/18 23:03 AST 43 U/L (17-59) 02/22/18 23:03 ALT 40 U/L (7-56) 02/22/18 23:03 Alkaline Phosphatase 73 U/L (38-126) 02/22/18 23:03 Lactate Dehydrogenase 520 U/L (333-699) 02/22/18 23:03 Total Creatine Kinase 307 U/L (35-230) H 02/22/18 23:03 CK-MB (CK-2) 2.8 ng/mL (0.0-3.6) 02/22/18 23:03 CK-MB (CK-2) % Cancelled 02/22/18 23:03 Troponin I < 0.01 ng/mL 02/23/18 12:05 NT-Pro-B Natriuret Pep 14.2 pg/mL (0-450) 02/22/18 23:03 Total Protein 7.8 g/dL (5.8-8.3) 02/22/18 23: Albumin 4.3 g/dL (3.0-4.8) 02/22/18 23: Globulin 3.5 gm/dL 02/22/18 23: Albumin/Globulin Ratio 1.2 (1.1-1.8) 02/22/18 23:03 Triglycerides 101 mg/dL (35-160) 02/23/18 06:00 Cholesterol 191 mg/dL (130-200) 02/23/18 06:00 LDL Cholesterol Direct 169 mg/dL (0-129) H 02/23/18 06:00 HDL Cholesterol 31 mg/dL (29-60) 02/23/18 06:00 TSH 3rd Generation 2.79 mIU/mL (0.46-4.68) 02/23/18 06:00 Urine Color Light yellow (YELLOW) 02/22/18 23:40 Urine Appearance Clear (CLEAR) 02/22/18 23:40 Urine pH 6.5 (4.7-8.0) 02/22/18 23:40 Ur Specific [place] <= 1.005 (1.005-1.035) 02/22/18 23:40 Urine Protein Negative mg/dL (<30 mg/dL) 02/22/18 23:40 Urine Glucose (UA) Negative mg/dL (NEGATIVE) 02/22/18 23:40 Urine Ketones Negative mg/dL (NEGATIVE) 02/22/18 23:40 Urine Blood Negative (NEGATIVE) 02/22/18 23:40 Urine Nitrate Negative (NEGATIVE) 02/22/18 23:40 Urine Bilirubin Negative (NEGATIVE) 02/22/18 23:40 Urine Urobilinogen 0.2 E.U./dL (<1 E.U./dL) 02/22/18 23:40 Ur Leukocyte Esterase Negative John/uL (NEGATIVE) 02/22/18 23:40 Urine Opiates Screen Negative (NEGATIVE) 02/23/18 15:11 Urine Methadone Screen Negative (NEGATIVE) 02/23/18 15:11 Ur Barbiturates Screen Negative (NEGATIVE) 02/23/18 15:11 Ur Phencyclidine Scrn Negative (NEGATIVE) 02/23/18 15:11 Ur Amphetamines Screen Negative (NEGATIVE) 02/23/18 15:11 U Benzodiazepines Scrn Negative (NEGATIVE) 02/23/18 15:11 U Oth Cocaine Metabols Negative (NEGATIVE) 02/23/18 15:11 U Cannabinoids Screen Negative (NEGATIVE) 02/23/18 15:11 - Hospital Course Hospital Course: Upon Admission: 62 yo M with no significant pmhx who presents to the ED for near syncope and palpitations. Pt states that at 10 PM yesterday he was sitting on his couch when he began to feel lightheaded. Pt states that he has had episodes like this before, but they would only last for a few seconds and they would be limited to when he would stand too quickly. Pt states that this time he was on the couch and just watching TV. He then stood up to go to his office and to drink some water. Pt states that when he stood up the lightheadedness did not get worse. Pt reports that when his lightheadedness felt better after he drank some water. Pt reports that after the water he went up to his office but continued to feel lightheaded and this feeling continued for about 30 mins per pt before he called EMS. Pt denies actually fainting during this episode. Pt states that also during this episode he felt palpitations. Pt also denies fevers, chills, headache, weakness, dizziness, SOB, chest pain, orthopnea, abd pain, n/v, c/d, dysuria or hematuria. Pt does admit to a cough that has been present for 3 weeks after he recovered from the flu, the cough is not productive, he continues to admit to dizziness but states that it is improved, and he admits to increase urinary frequency and increased thirst. Hospital Course: During hospital stay patient underwent workup for syncope. Chest xray was negative. Head CT was negative. EKG was NSR, echocardiogram revealed LVEF of 63%, carotid artery ultrasound was done. Vitals remained stable throughout hospital course. Pt was found to have Hemoglobin A1c of 7.1 and LDL of 169. Pt was evaluated by cardiology who recommended outpatient stress test for further risk stratification. He was started on atorvastatin for hyperlipidemia, and aspirin. He was hydrated with IV fluids and given duoneb treatments for shortness of breath. Upon Discharge: Pt reported no acute complaints in the am. He denies any more recent episodes of palpitations, dizziness or syncopal episodes. His vital signs are stable, labs wnl, hemodynamically stable. He is to be discharged on home aspirin and atorvastatin. A deckhand tuna boat and nutrition educator has seen the patient. He wants to try lifestyle modifications for treatment of his diabetes before he starts medications. [facility] He is being set up with [facility] by social work Discharge Exam - Head Exam Head Exam: ATRAUMATIC, NORMAL INSPECTION, NORMOCEPHALIC - Eye Exam Eye Exam: EOMI, Normal appearance - ENT Exam ENT Exam: Mucous Membranes Moist - Neck Exam Neck exam: Normal Inspection - Respiratory Exam Respiratory Exam: NORMAL BREATHING PATTERN, UNREMARKABLE - Cardiovascular Exam Cardiovascular Exam: REGULAR RHYTHM, +S1, +S2 - GI/Abdominal Exam GI & Abdominal Exam: Normal Bowel Sounds, Soft - Extremities Exam Extremities exam: normal capillary refill, normal inspection - Back Exam Back exam: NORMAL INSPECTION - Neurological Exam Neurological exam: Alert, Oriented x3 - Psychiatric Exam Psychiatric exam: Normal Affect, Normal Mood - Skin Skin Exam: Dry, Intact, Warm Discharge Plan - Discharge Medications Prescriptions: Aspirin [Aspirin Chewable] 81 mg PO DAILY #14 chew Atorvastatin [Lipitor] 20 mg PO DIN #14 tab - Follow Up Plan Condition: STABLE Disposition: HOME/ ROUTINE Instructions: Hyperglycemia, Adult (DC), Syncope (Fainting) (DC), Palpitations (DC) Additional Instructions: Please follow these instructions upon discharge from the hospital: You have been diagnosed with diabetes mellitus, type 2. Please follow the instructions given to you by the diabetes instructor. Please follow a diabetic diet. You have been diagnosed with high cholesterol. You have been started on a new medication called "atorvastatin 20mg." Please take this medication every night with dinner. You have been started on a new medication called "Aspirin 81mg." Please take this medication You can follow up with Dr. Jimenez (Networking Technician) next week for an outpatient stress test. We have made an appointment for you at the [facility] on 03/10/18. Please arrive to your appointment at least 15 minutes early. Please discuss your hospitalization with the physician during your appointment, including diabetes and cholesterol management. If your symptoms return, please visit the nearest emergency room Referrals: Brandon Jimenez MD [Staff Provider] - <Wai Robledo - Last Filed: 02/24/18 17:01> Provider - Provider Date of Admission: 02/23/18 01:57 Attending physician: Wai Robledo MD Hospital Course - Lab Results Lab Results: Most Recent Lab Values WBC 9.1 10^3/uL (4.5-11.0) 02/24/18 05:15 RBC 4.44 10^6/uL (3.5-6.1) 02/24/18 05:15 Hgb 13.6 g/dL (14.0-18.0) L 02/24/18 05:15 Hct 40.8 % (42.0-52.0) L 02/24/18 05:15 MCV 91.9 fl (80.0-105.0) 02/24/18 05:15 MCH 30.6 pg (25.0-35.0) 02/24/18 05:15 MCHC 33.3 g/dl (31.0-37.0) 02/24/18 05:15 RDW 14.0 % (11.5-14.5) 02/24/18 05:15 Plt Count 268 10^3/uL (120.0-450.0) 02/24/18 05:15 MPV 10.0 fl (7.0-11.0) 02/24/18 05:15 Gran % 44.6 % (50.0-68.0) L 02/22/18 23:03 Lymph % (Auto) 37.2 % (22.0-35.0) H 02/22/18 23:03 [place] % (Auto) 12.6 % (1.0-6.0) H 02/22/18 23:03 Eos % (Auto) 5.0 % (1.5-5.0) 02/22/18 23:03 Baso % (Auto) 0.6 % (0.0-3.0) 02/22/18 23:03 Gran # 4.45 (1.4-6.5) 02/22/18 23:03 Lymph # (Auto) 3.7 (1.2-3.4) H 02/22/18 23:03 [place] # (Auto) 1.3 (0.1-0.6) H 02/22/18 23:03 Eos # (Auto) 0.5 (0.0-0.7) 02/22/18 23:03 Baso # (Auto) 0.06 K/mm3 (0.0-2.0) 02/22/18 23:03 PT 12.5 SECONDS (9.4-12.5) 02/24/18 05:15 INR 1.09 02/24/18 05:15 APTT 26.5 Seconds (25.1-36.5) 02/24/18 05:15 D-Dimer, Quantitative < 200 ng/mlDDU (0-243) 02/24/18 05:15 Sodium 139 mmol/L (132-148) 02/24/18 05:15 Potassium 4.4 mmol/L (3.6-5.0) 02/24/18 05:15 Chloride 106 mmol/L (98-107) 02/24/18 05:15 Carbon Dioxide 28 mmol/L (21-33) 02/24/18 05:15 Anion Gap 10 (10-20) 02/24/18 05:15 BUN 13 mg/dL (7-21) 02/24/18 05:15 Creatinine 1.1 mg/dl (0.8-1.5) 02/24/18 05:15 Est GFR ( Amer) > 60 02/24/18 05:15 Est GFR (Non-Af Amer) > 60 02/24/18 05:15 POC Glucose (mg/dL) 111 mg/dL (65-110) H 02/24/18 07:22 Random Glucose 128 mg/dL (70-110) H 02/24/18 05:15 Hemoglobin A1c 7.1 % (4.2-6.5) H 02/23/18 06:00 Calcium 9.0 mg/dL (8.4-10.5) 02/24/18 05:15 Total Bilirubin 0.4 mg/dL (0.2-1.3) 02/22/18 23:03 AST 43 U/L (17-59) 02/22/18 23:03 ALT 40 U/L (7-56) 02/22/18 23:03 Alkaline Phosphatase 73 U/L (38-126) 02/22/18 23:03 Lactate Dehydrogenase 520 U/L (333-699) 02/22/18 23:03 Total Creatine Kinase 307 U/L (35-230) H 02/22/18 23:03 CK-MB (CK-2) 2.8 ng/mL (0.0-3.6) 02/22/18 23:03 CK-MB (CK-2) % Cancelled 02/22/18 23:03 Troponin I < 0.01 ng/mL 02/23/18 12:05 NT-Pro-B Natriuret Pep 14.2 pg/mL (0-450) 02/22/18 23:03 Total Protein 7.8 g/dL (5.8-8.3) 02/22/18 23:03 Albumin 4.3 g/dL (3.0-4.8) 02/22/18 23:03 Globulin 3.5 gm/dL 02/22/18 23:03 Albumin/Globulin Ratio 1.2 (1.1-1.8) 02/22/18 23:03 Triglycerides 101 mg/dL (35-160) 02/23/18 06:00 Cholesterol 191 mg/dL (130-200) 02/23/18 06:00 LDL Cholesterol Direct 169 mg/dL (0-129) H 02/23/18 06:00 HDL Cholesterol 31 mg/dL (29-60) 02/23/18 06:00 TSH 3rd Generation 2.79 mIU/mL (0.46-4.68) 02/23/18 06:00 Urine Color Light yellow (YELLOW) 02/22/18 23:40 Urine Appearance Clear (CLEAR) 02/22/18 23:40 Urine pH 6.5 (4.7-8.0) 02/22/18 23:40 Ur Specific [place] <= 1.005 (1.005-1.035) 02/22/18 23:40 Urine Protein Negative mg/dL (<30 mg/dL) 02/22/18 23:40 Urine Glucose (UA) Negative mg/dL (NEGATIVE) 02/22/18 23:40 Urine Ketones Negative mg/dL (NEGATIVE) 02/22/18 23:40 Urine Blood Negative (NEGATIVE) 02/22/18 23:40 Urine Nitrate Negative (NEGATIVE) 02/22/18 23:40 Urine Bilirubin Negative (NEGATIVE) 02/22/18 23:40 Urine Urobilinogen 0.2 E.U./dL (<1 E.U./dL) 02/22/18 23:40 Ur Leukocyte Esterase Negative John/uL (NEGATIVE) 02/22/18 23:40 Urine Opiates Screen Negative (NEGATIVE) 02/23/18 15:11 Urine Methadone Screen Negative (NEGATIVE) 02/23/18 15:11 Ur Barbiturates Screen Negative (NEGATIVE) 02/23/18 15:11 Ur Phencyclidine Scrn Negative (NEGATIVE) 02/23/18 15:11 Ur Amphetamines Screen Negative (NEGATIVE) 02/23/18 15:11 U Benzodiazepines Scrn Negative (NEGATIVE) 02/23/18 15:11 U Oth Cocaine Metabols Negative (NEGATIVE) 02/23/18 15:11 U Cannabinoids Screen Negative (NEGATIVE) 02/23/18 15:11 Attending/Attestation - Attestation I have personally seen and examined this patient.: Yes I have fully participated in the care of the patient.: Yes I have reviewed all pertinent clinical information, including history, physical exam and plan: Yes Notes (Text): 02/24/18 16:58 Attending note; Patient seen and examined with resident. Patient is alert and awake. Denies any dizziness or chest pain. Denies any palpitations, shortness of breath. Tolerating diet well. Patient is a 62-year-old male with no significant past medical history is admitted for dizziness and palpitations. CT head is negative. Neurology evaluation appreciated. EKG, cardiac enzymes negative. Echocardiogram prelim showed ejection fraction of 63%. Hyperlipidemia; started on by mouth Lipitor. Dietary education given. Diabetes; started cupola charger insulation-controlled diet. Diabetic nurse education given. Patient will repeat hemoglobin A1c in 3 months. If not improved patient will start oral hypoglycemic. Cardiology evaluation appreciated. Outpatient stress test scheduled for next week. Patient will be discharged home today. Patient will [facility] [facility]. Diagnosis; Diabetes Hyperlipidemia Obesity dizziness
--- NOTE | 2018-02-24 18:29 | US ---
PROCEDURE: Bilateral carotid artery duplex ultrasound HISTORY: Carotid stenosis PHYSICIAN(S): Shyam Rodriguez MD. TECHNIQUE: Duplex sonography and color-flow Doppler were used to evaluate the carotid bifurcations and limited segments of the vertebral arteries bilaterally. The exam is somewhat limited by body habitus. FINDINGS: There is mild smooth hypoechoic plaque noted at the carotid bifurcations bilaterally. The peak systolic velocity in the proximal right internal carotid artery is 84 cm/sec. This corresponds to a 20 to 39% proximal right ICA stenosis. Normal systolic velocities are noted in the proximal right external carotid artery. There is antegrade flow in the right vertebral artery. The peak systolic velocity in the proximal left internal carotid artery is 88 cm/sec. This corresponds to a 20 to 39% proximal left ICA stenosis. Normal systolic velocities are noted in the proximal left external carotid artery. There is antegrade flow in the left vertebral artery. IMPRESSION: 1. Bilateral 20-39% proximal ICA stenoses. 2. Antegrade flow in both vertebral arteries.
== END 2018-02-24 15:47 | disposition home or self-care (01) ==
LOC: ED 22:40 → ERH 02-23 01:57 → 3RSO 02-23 03:05
PROVIDERS: ADMIT Internal Medicine; ATTEND Internal Medicine
DX: G45.0 Vertebro-basilar artery syndrome (principal); E11.65 Type 2 diabetes mellitus with hyperglycemia; E78.5 Hyperlipidemia, unspecified; E66.9 Obesity, unspecified; H70.90 Unspecified mastoiditis, unspecified ear; D64.9 Anemia, unspecified; Z90.49 Acquired absence of other specified parts of digestive tract; Z88.0 Allergy status to penicillin; R00.2 Palpitations; Z68.32 Body mass index [BMI] 32.0-32.9, adult
CPT/HCPCS: 36415; 70450; 71045; 80048; 80053; 80061; 81003; 82550; 82553; 82948; 83036; 83615; 83880; 84443; 84484; 85025; 85027; 85378; 85610; 85730; 93005; 93306; 93880; 94640; 97161; 99285; G0378; G0480; G8978; G8979; G8980; J7030